=== PATIENT | female | born 1935 | race Caucasian/White ===

== ENCOUNTER 2017-08-31 15:26 | Outpatient (CLI) | payer MEDICARE, OTHER | END 2017-08-31 15:27 | disposition home or self-care (01) | LOC: BICRAD 15:26 | PROVIDERS: ATTEND Family Medicine | DX: R06.09 Other forms of dyspnea (principal) | CPT/HCPCS: 71046 ==

== ENCOUNTER 2017-09-07 14:25 | Outpatient (CLI) | payer MEDICARE, OTHER | END 2017-09-07 14:26 | disposition home or self-care (01) | LOC: BICMAMMO 14:25 | PROVIDERS: ATTEND Family Medicine | DX: Z12.31 Encounter for screening mammogram for malignant neoplasm of breast (principal) | CPT/HCPCS: 77063; 77067 ==

== ENCOUNTER 2018-09-13 09:33 | Outpatient (CLI) | payer MEDICARE, OTHER ==
--- NOTE | 2018-09-13 11:40 | MMO ---
Bilateral MAMMO Bilat Screen [facility]. CLINICAL HISTORY: Patient is 82 years old and is seen for screening. The patient has no family history of breast cancer. The patient has no personal history of cancer. The patient has a history of left Excisional Biopsy - benign, right Excisional Biopsy - malignant and right Lumpectomy - invasive ductal carcinoma - fifteen years ago. VIEWS: The views performed were: bilateral craniocaudal with tomosynthesis and bilateral mediolateral oblique with tomosynthesis. FILMS COMPARED: The present examination has been compared to prior imaging studies performed at [facility] on 09/07/2017, at [facility] on 07/21/2016, and at [facility] on 06/06/2013, 07/11/2014 and 07/16/2015. MAMMOGRAM FINDINGS: There are scattered fibroglandular densities. Benign calcifications are noted bilaterally. There are no suspicious masses, suspicious calcifications, or new areas of architectural distortion. IMPRESSION: THERE IS NO MAMMOGRAPHIC EVIDENCE OF MALIGNANCY. A ROUTINE FOLLOW-UP MAMMOGRAM IN 1 YEAR IS RECOMMENDED. THE RESULTS OF THIS EXAM WERE SENT TO THE PATIENT. ACR BI-RADS Category 2 - Benign finding MAMMOGRAPHY NOTE: 1. A negative mammogram report should not delay a biopsy if a dominant of clinically suspicious mass is present. 2. Approximately 10% to 15% of breast cancers are not detected by mammography. 3. Adenosis and dense breasts may obscure an underlying neoplasm.
== END 2018-09-13 09:34 | disposition home or self-care (01) ==
LOC: BICMAMMO 09:33
PROVIDERS: ATTEND Family Medicine
DX: Z12.31 Encounter for screening mammogram for malignant neoplasm of breast (principal)
CPT/HCPCS: 77063; 77067

== ENCOUNTER 2021-04-09 14:09 | Outpatient (CLI) | payer MEDICARE, OTHER | END 2021-04-09 14:10 | disposition home or self-care (01) | LOC: BICMAMMO 14:09 | PROVIDERS: ATTEND Family Medicine | DX: Z12.31 Encounter for screening mammogram for malignant neoplasm of breast (principal); Z13.820 Encounter for screening for osteoporosis; Z91.89 Other specified personal risk factors, not elsewhere classified; Z98.890 Other specified postprocedural states | CPT/HCPCS: 77063; 77067; 77080 ==

== ENCOUNTER 2021-09-23 09:03 | Observation (INO) | payer MEDICARE, OTHER, SELFPAY ==
[2021-09-23] MEDS ORDERED: Ondansetron PF 4 MG/2 ML Vial ONE (09:32)
[2021-09-23] MEDS ORDERED: Lorazepam 2 MG/ML VIAL ONE (09:32)
[2021-09-23] MEDS ORDERED: Meclizine HCl 25 MG TAB ONE (09:32)
[2021-09-23 09:54] LABS: #Monocytes 0.5 thou/uL (0.11-0.59); #Neutrophils 4.1 thou/uL (1.40-6.50); %Eosinophils 0.1 % (0.0-10.0); %Lymphocytes 39.7 % (21.0-51.0); %Monocytes 6.2 % (0.0-10.0); Hemoglobin 13.7 g/dL (12.0-16.0); Mean Corpuscular HGB CONC 32.8 g/dL (32.0-36.0); Mean Corpuscular Hemoglobin 29.7 pg (27.0-31.0); Mean Corpuscular Volume 90.7 fL (78.0-98.0); Mean Platelet Volume 7.9 fL (7.4-10.4); Platelet Count 206 thou/uL (130-400); RBC Distribution Width 12.4 % (11.5-14.5); Red Blood Cell (RBC) Count 4.62 mill/uL (4.20-5.40); White Blood Cell (WBC) Count 7.6 thou/uL (4.8-10.8)
[2021-09-23 10:06] LABS: ALT (SGPT) 16 U/L (8-55); AST (SGOT) 20 U/L (5-34); Alkaline Phosphatase 57 U/L (40-110); Anion Gap 15 mmol/L (10-20); BUN (Urea Nitrogen) 13 mg/dL (9.8-20.1); Bilirubin, Total 0.6 mg/dL (0.2-1.2); Calc. Creatinine Clearance 0 mL/min (70-130); Calcium 9.3 mg/dL (7.8-10.44); Carbon Dioxide 19 mmol/L (23-31); Chloride 107 mmol/L (98-107); Glucose 190 mg/dL (83-110); Lipase 54 U/L (8-78); Sodium 137 mmol/L (136-145)
[2021-09-23] MEDS ORDERED: Acetaminophen 650 MG Suppository PR PRN (12:34)
[2021-09-23] MEDS ORDERED: Acetaminophen 325 MG TAB PO PRN (12:34)
[2021-09-23] MEDS ORDERED: Ondansetron ODT 4 MG TAB PO PRN (12:34)
[2021-09-23] MEDS ORDERED: Ondansetron PF 4 MG/2 ML Vial IVP PRN (12:34)
[2021-09-23] MEDS ORDERED: Calcium Carbonate 500 MG ChewTAB PO PRN (12:34)
[2021-09-23] MEDS ORDERED: Senokot S 8.6-50 MG TAB PO PRN (12:34)
[2021-09-23] MEDS ORDERED: hydrALAZINE 20 MG/ML VIAL SLOW IVP PRN (13:01)
[2021-09-23] MEDS ORDERED: Aspirin 325 mg Enteric Coated Tablet PO SCH (13:15)
[2021-09-23] MEDS ORDERED: Meclizine HCl 25 MG TAB PO PRN (13:20)
[2021-09-23 13:40] LABS: Troponin I Less than 0.010 ng/mL (< 0.028)
[2021-09-23 14:03] LABS: SARS-CoV-2 NAA Rapid Test Not Detected (NotDetected)
[2021-09-23] MEDS ORDERED: Famotidine 20 MG TAB PO SCH (21:00)
[2021-09-23] MEDS ORDERED: Atorvastatin Calcium 40 MG TAB PO SCH (21:00)
[2021-09-23] MEDS ORDERED: Famotidine/PF 20 mg/2ml Vial SLOW IVP SCH (21:00)
[2021-09-23] MEDS ORDERED: Lisinopril 20 MG TAB PO SCH (21:00)
[2021-09-24 05:33] LABS: Cardiac Risk 2.8 (Less than 4.5)
[2021-09-24] MEDS ORDERED: Levothyroxine Sodium 100 MCG TAB PO SCH (06:00)
[2021-09-24] MEDS ORDERED: Enoxaparin Sodium 40 MG/0.4 ML SYRINGE SC SCH (09:00)
[2021-09-24] MEDS ORDERED: Aspirin 325 mg Enteric Coated Tablet PO SCH (09:00)
[2021-09-24] MEDS ORDERED: Amlodipine 5 MG TAB PO SCH (09:00)
[2021-09-24] MEDS ORDERED: Cyanocobalamin (Vitamin B-12) 1,000 MCG TAB PO SCH (09:00)
[2021-09-24 15:59] VITALS: BP 117/68; TEMP 98.2
[2021-09-24 16:44] VITALS: BMI 30.2
== END 2021-09-24 18:43 | disposition home or self-care (01) ==
LOC: ERS 09:03 → ERHOLD 11:19 → NEURO 14:47
PROVIDERS: ADMIT Internal Medicine; ATTEND Internal Medicine
DX: R42 Dizziness and giddiness (principal); R41.0 Disorientation, unspecified; E03.9 Hypothyroidism, unspecified; E78.5 Hyperlipidemia, unspecified; I12.9 Hypertensive chronic kidney disease with stage 1 through stage 4 chronic kidney disease, or unspecified chronic kidney disease; N18.30 Chronic kidney disease, stage 3 unspecified; I08.8 Other rheumatic multiple valve diseases; I45.10 Unspecified right bundle-branch block; Z85.3 Personal history of malignant neoplasm of breast; Z79.82 Long term (current) use of aspirin; Z79.899 Other long term (current) drug therapy; Z20.822 Contact with and (suspected) exposure to COVID-19
CPT/HCPCS: 70450; 70551; 80061; 82607; 82746; 83690; 83735; 83880; 84484 ×2; 93005; 93306; 93880; 95712; 95819; 95957; 96374; 96375; 97116; 97139 ×2; 99285; U0002; 36415; 80053; 84443; 85025; 96372; G0378; J1650; J2060; J2405

== ENCOUNTER 2022-05-31 08:25 | Outpatient (CLI) | payer MEDICARE, OTHER | END 2022-05-31 08:26 | disposition home or self-care (01) | LOC: BICMAMMO 08:25 | PROVIDERS: ATTEND Family Medicine | DX: Z12.31 Encounter for screening mammogram for malignant neoplasm of breast (principal); R92.1 Mammographic calcification found on diagnostic imaging of breast; Z98.890 Other specified postprocedural states; Z86.018 Personal history of other benign neoplasm; Z85.3 Personal history of malignant neoplasm of breast; Z91.89 Other specified personal risk factors, not elsewhere classified | CPT/HCPCS: 77063; 77067 ==